=== PATIENT | male | born 1975 | race Caucasian/White ===

== ENCOUNTER 2024-02-21 00:14 | Emergency (ER) | payer OTHER ==
[2024-02-21 01:28] LABS: BASOPHILS ABSOLUTE AUTO 0.02 10^3/uL (0.00-0.50); BASOPHILS PERCENT AUTO 0.2 % (0-1); EOSINOPHILS ABSOLUTE AUTO 0.05 10^3/uL (0.00-1.50); EOSINOPHILS PERCENT AUTO 0.6 % (0-6); HEMATOCRIT 44.4 % (42.0-52.0); IMMATURE GRAN ABSOLUTE AUTO 0.04 10^3/uL (0.00-0.49); IMMATURE GRAN PERCENT AUTO 0.4 % (0.0-4.9); LYMPHOCYTES ABSOLUTE AUTO 1.72 10^3/uL (0.60-5.00); LYMPHOCYTES PERCENT AUTO 19.1 % (24-44); MEAN CORPUSCULAR HEMOGLOBIN 29.8 pg (27.0-32.0); MEAN CORPUSCULAR HGB CONC 33.8 g/dL (32.0-36.0); MEAN CORPUSCULAR VOLUME 88.1 fL (83.0-97.0); MONOCYTES ABSOLUTE AUTO 0.66 10^3/uL (0.00-1.50); MONOCYTES PERCENT AUTO 7.3 % (0-10); NEUTROPHILS ABSOLUTE AUTO 6.52 x10^3/uL (1.80-8.00); NEUTROPHILS PERCENT AUTO 72.4 % (41-71); PLATELET COUNT,PLT 326 10^3/uL (150-400); RED BLOOD CELL COUNT 5.04 x10^6/uL (4.50-6.00)
[2024-02-21 01:29] LABS: APPEARANCE,URINE CLEAR (CLEAR); COLOR,URINE DARK YELLOW (YELLOW); GLUCOSE,URINE 500 mg/dL (NEGATIVE); KETONES,URINE 40 mg/dL (NEGATIVE); LEUKOCYTE ESTERASE,URINE NEGATIVE (NEGATIVE); NITRITE,URINE NEGATIVE (NEGATIVE); OCCULT BLOOD,URINE NEGATIVE (NEGATIVE); PH,URINE 6.5 (4.5-8.0); PROTEIN,URINE TRACE mg/dL (NEGATIVE)
[2024-02-21 01:40] LABS: ALBUMIN 3.5 g/dL (3.4-5.0); BILIRUBIN TOTAL 0.7 mg/dL (0.0-1.0); CALCIUM 8.8 mg/dL (8.4-10.1); CREATININE 0.9 mg/dL (0.7-1.3); EST CRCL DRUG DOSING (CG) 92.83 mL/min; MAGNESIUM 1.7 mg/dL (1.8-2.4); POTASSIUM,K 4.4 mEq/L (3.5-5.0); PROTEIN TOTAL,TP 8.4 g/dL (6.4-8.2)
[2024-02-21] MEDS: Sodium Chloride 0.9% 1,000 ML IV ONE (01:40)
[2024-02-21] MEDS: Pantoprazole 40 MG Vial IVPUSH SCH (01:41)
[2024-02-21 01:42] LABS: BILIRUBIN,URINE SMALL (NEGATIVE)
[2024-02-21 01:44] LABS: BACTERIA,URINE NOT SEEN /HPF (NOT SEEN); RBC,URINE 0-5 /HPF (0-5); SQUAMOUS EPITHELIAL CELLS,UR NOT SEEN /HPF (NOT SEEN); WBC,URINE NOT SEEN /HPF (0-5)
== END 2024-02-21 03:12 | disposition home or self-care (01) ==
LOC: CC.ED 00:14
DX: E86.0 Dehydration (principal); R11.2 Nausea with vomiting, unspecified; E78.00 Pure hypercholesterolemia, unspecified; E11.40 Type 2 diabetes mellitus with diabetic neuropathy, unspecified; Z79.4 Long term (current) use of insulin; Z79.899 Other long term (current) drug therapy
CPT/HCPCS: 36415; 80053; 81001; 83690; 83735; 85025; 96361; 96374; 99284-25; J2470; J7030

== ENCOUNTER 2024-04-29 17:57 | Emergency (ER) | payer OTHER ==
[2024-04-29] MEDS: Take Home: Cephalexin 500 MG Cap, 6 Cap Pack PO ONE (18:18)
== END 2024-04-29 18:26 | disposition home or self-care (01) ==
LOC: SUPCPDRO 17:57 → CC.ED 17:57
DX: K04.7 Periapical abscess without sinus (principal); E11.40 Type 2 diabetes mellitus with diabetic neuropathy, unspecified; E78.00 Pure hypercholesterolemia, unspecified; Z79.899 Other long term (current) drug therapy; Z79.4 Long term (current) use of insulin
CPT/HCPCS: 99283; A9270; 99282